=== PATIENT | female | born 1945 | race Caucasian/White ===

== ENCOUNTER 2018-10-18 11:25 | Emergency (ER) | payer MEDICARE, OTHER ==
[~2018-10-18] VITALS: Ht 157.5 cm; Wt 81.6 kg
[2018-10-18] MEDS ORDERED: ONDANSETRON 4 MG/2 ML (SDV) Z0FRAN IVP ONE (11:45)
--- NOTE | 2018-10-18 11:47 | ED Back Pain ---
General Chief Complaint: Trauma-Non Activation Stated Complaint: FALL, BACK PAIN Nursing Triage Note: Was walking up stairs and fell backwards, hitting back of head and upper back. Is having back pain rated at 8/10. Was given 50 mcg intranasal fentanyl en route by EMS. Has hematoma to posterior head. Nursing Sepsis Screen: No Definite Risk Source of Information: Patient Exam Limitations: No Limitations History of Present Illness Date Seen by Provider: Oct 18, 2018 Time Seen by Provider: 11:30 Initial Comments 73 yr old female who lost her balance and fell striking her head, neck, thoracic and lumbar spine. No LOC or other associated injuries. Denies any preceding palpitations, chest pain, weakness or other associated symptoms. No fever/chills or visual sx reported. Timing/Duration: 1-3 Hours Allergies and Home Medications Allergies Coded Allergies: Penicillins (Verified Allergy, Unknown, 10/18/18) Sulfa (Sulfonamide Antibiotics) (Verified Allergy, Unknown, 10/18/18) propoxyphene (Verified Allergy, Unknown, 10/18/18) Patient Home Medication List Home Medication List Reviewed: Yes Review of Systems Constitutional: see HPI EENTM: see HPI Respiratory: see HPI Cardiovascular: see HPI Gastrointestinal: see HPI Genitourinary: see HPI Musculoskeletal: see HPI, back pain, neck pain Skin: see HPI Psychiatric/Neurological: No Symptoms Reported, See HPI Past Xgkiinh-Xtrdhe-Etdngz Hx Patient Social History Recent Foreign Travel: No Contact w/Someone Who Travel: No Recent Infectious Disease Expo: No Physical Exam Vital Signs Vital Signs - First Documented 10/18/18 11:30 Temp 99.0 Pulse 78 Resp 16 B/P (MAP) 144/67 (92) Pulse Ox 96 Capillary Refill : Less Than 3 Seconds Height, Weight, BMI Height: 5'2.00" Weight: 180lbs. oz. 81.310347vw; BMI Method:Stated General Appearance: No Apparent Distress, WD/WN HEENT: PERRL/EOMI, TMs Normal, Normal ENT Inspection, Pharynx Normal, Other ( STS left occipital region) Neck: Full Range of Motion, Normal Inspection, Supple, Limited Range of Motion , Tender Midline Cardiovascular: Regular Rate, Rhythm, No Edema, No Gallop, No JVD, No Murmur, Normal Peripheral Pulses Respiratory: Chest Non Tender, Lungs Clear, No Accessory Muscle Use, No Respiratory Distress, Decreased Breath Sounds Peripheral Pulses: 2+ Dorsalis Pedis (R), 2+ Left Dors-Pedis (L) Gastrointestinal: Normal Bowel Sounds, No Organomegaly, No Pulsatile Mass, Non Tender, Soft Back: Normal Inspection, Vertebral Tenderness (throughout c-, t-, and l- spine. 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; No Aphasia, No Disoriented, No Facial Droop, No Motor Weakness Skin: Normal Color, Warm/Dry Lymphatic: No Adenopathy Progress/Results/Core Measures Results/Orders My Orders Orders - KARLI LAMBERT MD Ct Head/Cervical Spine Wo (10/18/18 11:35) Fentanyl Injection (Sublimaze Injection (10/18/18 11:45) Ondansetron Injection (Zofran Injectio (10/18/18 11:45) Ct Thoracic/Lumbar Spine Wo (10/18/18 11:35) Chest 1 View Ap/Pa Only (10/18/18 11:48) Medications Given in ED Current Medications Medications Dose Ordered Sig/Magdy Route Start Time Stop Time Status Last Admin Dose Admin Fentanyl Citrate 25 mcg Q1H PRN IVP 10/18/18 11:45 10/18/18 12:04 25 MCG Ondansetron HCl 4 mg ONCE ONCE IVP 10/18/18 11:45 10/18/18 11:46 DC 10/18/18 12:04 4 MG Vital Signs/I&O 10/18/18 11:30 Temp 99.0 Pulse 78 Resp 16 B/P (MAP) 144/67 (92) Pulse Ox 96 Blood Pressure Mean: 92 Progress Progress Note : Time: 11:48 Progress Note Due to diffuse tenderness, will CT head, cervical, thoracic and lumbar spine. CXR Diagnostic Imaging Diagonstic Imaging: Xray, CT Plain Films/CT/US/NM/MRI: chest, c-spine, other (t-spine, L-spine) Comments NAME: NIYA DONIS [facility] REC#: [id number] PHYSICIAN: KARLI LAMBERT MD CC: DAINEL OBRIEN MD; KARLI LAMBERT MD Page 1 of 1 RADIOLOGY REPORT [facility], [place], [place] CC: DANIEL OBRIEN MD; KARLI LAMBERT MD Page 1 of 1 RADIOLOGY REPORT CHEST 1 VIEW AP/PA ONLY Indication: Fall down stairs. Comparison: None available. Findings: No focal airspace disease in the visualized lungs. Please note that the posterior lower lobes are poorly evaluated by portable radiography. No pleural effusion or pneumothorax. Normal cardiomediastinal silhouette. No displaced fracture in the visualized ribs. Impression: No acute cardiopulmonary process by portable radiography. Dictated by: Dictated on workstation # [id number] Dict: 10/18/18 1243 Trans: 10/18/18 1243 Interpreted by: DANIEL OBRIEN MD Electronically signed by: DANIEL OBRIEN MD 10/18/18 124 Diagonstic Imaging: CT Comments CT HEAD/CERVICAL SPINE WO PROCEDURE: CT head and CT cervical spine without contrast. TECHNIQUE: Multiple contiguous axial images were obtained through the brain and cervical spine without the use of intravenous contrast. Sagittal and coronal reformations through the cervical spine were then performed. INDICATION: Fall with pain and swelling in the back of the head. COMPARISON: None available. FINDINGS: CT head: No intracranial hyperdense hemorrhage or space-occupying mass. No hydrocephalus or midline shift. Global atrophy is present. Srinivasan-white matter differentiation is preserved. No acute skull fracture. Large subcutaneous hematoma within the posterior right parietal-occipital region. Mastoid air cells are clear. Paranasal sinuses are also clear. CT cervical spine: No acute fracture or traumatic malalignment. No high-grade spinal canal narrowing. Varying degrees of gcto-qb-stfmqsrl femoral stenosis is present due to facet and uncovertebral joint hypertrophy. The thyroid is diffusely enlarged and heterogeneous in appearance with numerous ill-defined nodules indicative of thyroid goiter. IMPRESSION: 1. No acute intracranial hemorrhage or skull fracture. Large posterior parietal-occipital subcutaneous hematoma. 2. No acute fracture or traumatic malalignment in the cervical spine. 3. Enlarged multinodular thyroid goiter. Dictated on workstation # [id number] Dict: 10/18/18 1229 Trans: 10/18/18 1243 IMS [id number] Interpreted by: DANIEL OBRIEN MD Diagonstic Imaging: CT Comments CT THORACIC/LUMBAR SPINE WO TECHNIQUE: Unenhanced CT imaging of the thoracic and lumbar spine was performed. Sagittal and coronal reformats are created and submitted for interpretation. INDICATION: Back pain status post fall. COMPARISON: CT cervical spine performed concurrently. FINDINGS: Thoracic spine: Normal kyphosis of the thoracic spine. No traumatic subluxation. Vertebral bodies are normal in stature without fracture. No posterior element fracture. Visualized aspects of the posterior ribs remain intact. No spinal canal narrowing within the thoracic spine. No areas of high-grade neural foraminal stenosis. Lumbar spine: Normal lordosis of the lumbar spine. No traumatic subluxation. Vertebral bodies are normal in stature without compression deformity. Mild interspinous degenerative change. No posterior element fracture. Mild degenerative arthritis of the SI joints. No sacral fracture. No high-grade spinal stenosis. 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 No concerning abnormality in the retroperitoneum. IMPRESSION: 1. No fracture or malalignment in the thoracic and lumbar spine. Dictated on workstation # [id number] Dict: 10/18/18 1304 Trans: 10/18/18 1311 [id number] Interpreted by: DANIEL OBRIEN MD Electronically signed by: Departure Impression Primary Impression: Head injury Qualified Codes: S09.90XA - Unspecified injury of head, initial encounter Additional Impressions: Contusion of back Qualified Codes: S20.229A - Contusion of unspecified back wall of thorax, initial encounter Goiter, nontoxic, multinodular Disposition: 01 HOME, SELF-CARE Condition: Stable Departure-Patient Inst. Decision time for Depature: 14:49 Patient Instructions: Contusion (DC), Minor Head Injury (DC) Add. Discharge Instructions: Ice and elevation and rest. All discharge instructions reviewed with patient and/or family. Voiced understanding. Scripts Tramadol HCl (Tramadol HCl) 50 Mg Tablet 50 MG PO Q6H PRN for PAIN, #20 TAB 0 Refills Prov: KARLI LAMBERT MD 10/18/18 KARLI LAMBERT MD Oct 18, 2018 11:47
[2018-10-18] MEDS: fentaNYL INJECTION 100 MCG/2 ML AMP IVP PRN ×2 (12:04→14:53)
--- NOTE | 2018-10-18 12:44 | Diagnostic Imaging Report ---
PROCEDURE: CT head and CT cervical spine without contrast. TECHNIQUE: Multiple contiguous axial images were obtained through the brain and cervical spine without the use of intravenous contrast. Sagittal and coronal reformations through the cervical spine were then performed. INDICATION: Fall with pain and swelling in the back of the head. COMPARISON: None available. FINDINGS: CT head: No intracranial hyperdense hemorrhage or space-occupying mass. No hydrocephalus or midline shift. Global atrophy is present. Srinivasan-white matter differentiation is preserved. No acute skull fracture. Large subcutaneous hematoma within the posterior right parietal-occipital region. Mastoid air cells are clear. Paranasal sinuses are also clear. CT cervical spine: No acute fracture or traumatic malalignment. No high-grade spinal canal narrowing. Varying degrees of wgdz-fx-agiuxorl femoral stenosis is present due to facet and uncovertebral joint hypertrophy. The thyroid is diffusely enlarged and heterogeneous in appearance with numerous ill-defined nodules indicative of thyroid goiter. IMPRESSION: 1. No acute intracranial hemorrhage or skull fracture. Large posterior parietal-occipital subcutaneous hematoma. 2. No acute fracture or traumatic malalignment in the cervical spine. 3. Enlarged multinodular thyroid goiter. Dictated by: Dictated on workstation # [id number]
--- NOTE | 2018-10-18 12:46 | Diagnostic Imaging Report ---
CHEST 1 VIEW AP/PA ONLY Indication: Fall down stairs. Comparison: None available. Findings: No focal airspace disease in the visualized lungs. Please note that the posterior lower lobes are poorly evaluated by portable radiography. No pleural effusion or pneumothorax. Normal cardiomediastinal silhouette. No displaced fracture in the visualized ribs. Impression: No acute cardiopulmonary process by portable radiography. Dictated by: Dictated on workstation # [id number]
--- NOTE | 2018-10-18 13:11 | Diagnostic Imaging Report ---
CT THORACIC/LUMBAR SPINE WO TECHNIQUE: Unenhanced CT imaging of the thoracic and lumbar spine was performed. Sagittal and coronal reformats are created and submitted for interpretation. INDICATION: Back pain status post fall. COMPARISON: CT cervical spine performed concurrently. FINDINGS: Thoracic spine: Normal kyphosis of the thoracic spine. No traumatic subluxation. Vertebral bodies are normal in stature without fracture. No posterior element fracture. Visualized aspects of the posterior ribs remain intact. No spinal canal narrowing within the thoracic spine. No areas of high-grade neural foraminal stenosis. Lumbar spine: Normal lordosis of the lumbar spine. No traumatic subluxation. Vertebral bodies are normal in stature without compression deformity. Mild interspinous degenerative change. No posterior element fracture. Mild degenerative arthritis of the SI joints. No sacral fracture. No high-grade spinal stenosis. 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 No concerning abnormality in the retroperitoneum. IMPRESSION: 1. No fracture or malalignment in the thoracic and lumbar spine. Dictated by: Dictated on workstation # [id number]
[2018-10-18] MEDS ORDERED: TRAM50TA2 PO (14:52)
[2018-10-18 15:15] VITALS: BP 120/52
== END 2018-10-18 15:21 | disposition home or self-care (01) ==
LOC: ER FS 11:32
DX: S09.90XA Unspecified injury of head, initial encounter (principal); S30.0XXA Contusion of lower back and pelvis, initial encounter; E04.2 Nontoxic multinodular goiter; Z88.0 Allergy status to penicillin; Z88.2 Allergy status to sulfonamides; Z88.8 Allergy status to other drugs, medicaments and biological substances; W10.8XXA Fall (on) (from) other stairs and steps, initial encounter; W22.09XA Striking against other stationary object, initial encounter
CPT/HCPCS: 70450; 71045; 72125; 72128; 72131; 96374; 96375; 96376